=== PATIENT | female | born 1955 | race Caucasian/White ===

== ENCOUNTER → 2023-11-18 | Outpatient (CLI) | payer MEDICARE, BC ==
[2023-11-18 10:25] LABS: BASO # 0.02 K/mm3 (0.02-0.10); EOS # 0.05 K/mm3 (0.04-0.40); EOS % 0.8 % (1.0-5.0); HEMATOCRIT 40.4 % (37.0-47.0); HEMOGLOBIN 13.6 g/dL (12.5-16.0); LYMPH# 1.77 K/mm3 (1.50-4.00); MEAN CELL VOLUME 92 fl (78-100); MEAN CORPUSCULAR HEMOGLOBIN 31 pg (27-31); MEAN CORPUSCULAR HGB CONC 34 g/dL (33-37); MEAN PLATELET VOLUME 9.4 fl (7.4-10.4); PLATELET COUNT 186 K/mm3 (130-400); RED BLOOD COUNT 4.41 M/mm3 (4.10-5.30); RED CELL DISTRIBUTION WIDTH 12.9 % (11.5-14.5); WHITE BLOOD COUNT 6.1 K/mm3 (4.8-10.8)
[2023-11-18 10:43] LABS: ALBUMIN 4.3 g/dL (3.4-4.8)
[2023-11-18 10:44] LABS: CALCIUM 9.6 mg/dL (8.3-10.5)
[2023-11-18 10:47] LABS: TOTAL BILIRUBIN 0.6 mg/dL (0.2-1.2)
== END ==
LOC: LAB 10:09
PROVIDERS: Family Medicine
DX: I10 Essential (primary) hypertension (principal); E78.5 Hyperlipidemia, unspecified; E55.9 Vitamin D deficiency, unspecified

== ENCOUNTER 2024-04-12 12:05 | Emergency (ER) | payer MEDICARE, BC ==
[2024-04-12] MEDS ORDERED: MELOXICAM15 MG PO (12:39)
[2024-04-12 12:43] LABS: BASO # 0.01 K/mm3 (0.02-0.10); HEMATOCRIT 41.2 % (37.0-47.0); HEMOGLOBIN 13.9 g/dL (12.5-16.0); LYMPH# 0.94 K/mm3 (1.50-4.00); MEAN CELL VOLUME 92 fl (78-100); MEAN CORPUSCULAR HEMOGLOBIN 31 pg (27-31); MEAN CORPUSCULAR HGB CONC 34 g/dL (33-37); MEAN PLATELET VOLUME 9.8 fl (7.4-10.4); MONO # 0.36 K/mm3 (0.20-0.80); NEU # 2.39 K/mm3 (1.40-6.50); PLATELET COUNT 158 K/mm3 (130-400); RED BLOOD COUNT 4.47 M/mm3 (4.10-5.30); WHITE BLOOD COUNT 3.7 K/mm3 (4.8-10.8)
[2024-04-12] MEDS ORDERED: dilTIAZem 25 MG/5 ML VIAL IV ONE (12:45)
[2024-04-12 12:52] LABS: ALBUMIN 3.9 g/dL (3.4-4.8); SODIUM 134 mmol/L (136-145)
[2024-04-12 12:54] LABS: CALCIUM 9.2 mg/dL (8.3-10.5)
[2024-04-12 12:55] LABS: GLUCOSE 103 mg/dL (65-105); TOTAL PROTEIN 6.7 g/dL (6.2-8.1)
[2024-04-12 12:56] LABS: CARBON DIOXIDE 21 mmol/L (23-31)
[2024-04-12 12:57] LABS: TOTAL BILIRUBIN 0.5 mg/dL (0.2-1.2)
[2024-04-12 13:00] LABS: AST-SGOT 28 U/L (5-34)
[2024-04-12 13:01] LABS: ALT/SGPT 37 U/L (0-55)
[2024-04-12 13:07] LABS: TROPONIN-I < 0.030 ng/mL (0.00-0.033)
[2024-04-12] MEDS ORDERED: Oseltamivir 75 MG CAP PO ONE (13:30)
[2024-04-12] MEDS ORDERED: NS 500 ML IV SCH (14:15)
[2024-04-12 14:51] VITALS: BP 98/64
== END 2024-04-12 14:55 | disposition short-term general hospital (02) ==
LOC: ED 12:05
PROVIDERS: Physician Assistant
DX: I48.91 Unspecified atrial fibrillation (principal); J10.1 Influenza due to other identified influenza virus with other respiratory manifestations
CPT/HCPCS: J7040